=== PATIENT | male | born 1970 | race Asian ===

== ENCOUNTER 2018-09-02 13:39 | Emergency (ER) | payer BC ==
[~2018-09-02] VITALS: Ht 170.2 cm; Wt 68.0 kg
[2018-09-02 14:16] VITALS: Ht 170.2 cm; Wt 68.0 kg
[2018-09-02 16:07] VITALS: BP 121/76
== END 2018-09-02 16:07 | disposition home or self-care (01) ==
LOC: ED 13:39
DX: S61.012A Laceration without foreign body of left thumb without damage to nail, initial encounter (principal); W45.8XXA Other foreign body or object entering through skin, initial encounter; Y93.89 Activity, other specified; Y92.89 Other specified places as the place of occurrence of the external cause; Y99.8 Other external cause status
CPT/HCPCS: 90715